=== PATIENT | female | born 1975 | race African-American/Black ===

== ENCOUNTER 2017-01-26 08:47 | Emergency (ER) | payer SELFPAY ==
[~2017-01-26] VITALS: Ht 160 cm; Wt 68.7 kg
[~2017-01-26 08:47] MED LIST: BACT800T5 PO; CEPH500C3 PO; DICL50 PO; HYDR-3533 PO
[2017-01-26 09:00] VITALS: BP 156/107; PULSE 88; RESP 16; TEMP 98.3; O2SAT 99
[2017-01-26] MEDS ORDERED: predniSONE 20 MG TAB PO ONE (09:45)
[2017-01-26] MEDS ORDERED: MEDR4PAK PO (09:46)
--- NOTE | 2017-01-26 09:46 | PD ---
HPI Chief Complaint: Skin Problem Time Seen by Provider: 09:35 Travel History International Travel<30 days: No Contact w/Intl Traveler<30days: No Traveled to known affect area: No History of Present Illness HPI This 41-year-old female is complaining of an itchy rash. She says it just started today. She spent the night at a friend's house wondering if she might have bedbugs. She has lesions on her right arm and left back and her right anterior chest. Symptoms just started this morning. PFSH Past Medical History Diabetes: No Diminished Hearing: No Immune Disorder: No Immunizations Current: No ?: Not LMP: 3 days ago : 11 Para: 1 Miscarriage: 10 : 0 Ectopic : Yes Past Surgical History Other Surgery: Yes (ectopic ) Social History Alcohol Use: Yes (2 BEERS DAILY) Tobacco Use: No Substance Use: No Allergies-Medications (Allergen,Severity, Reaction): Coded Allergies: Lortab (Verified Allergy, Unknown, GI ILL, 01/26/17) Reported Meds & Prescriptions Reported Meds & Active Scripts Active Keflex (Cephalexin Monohydrate) 500 Mg Cap 500 Mg PO QID Bactrim DS (Sulfamethoxazole-Trimethoprim DS) 1 Tab Tab 1 Tab PO BID 10 Days Lortab 5 mg/325 mg (Hydrocodone/Acetaminophen 5 mg/325 mg) 1 Tab 1 Tab PO Q6H PRN Voltaren (Diclofenac Sodium) 50 Mg Tabec 50 Mg PO TID Review of Systems General / Constitutional: No: Fever, Chills Eyes: No: Diploplia HENT: No: Headaches, Vertigo Cardiovascular: No: Chest Pain or Discomfort Respiratory: No: Cough Gastrointestinal: No: Vomiting, Diarrhea Genitourinary: No: Urgency, Frequency Skin: Positive Rash, Positive Itching Endocrine: No: Heat Intolerance Hematologic/Lymphatic: No: Easy Bruising Physical Exam Narrative GENERAL: Well-developed female SKIN: Focused skin assessment warm/dry. There are several erythematous macular lesions on the left posterior chest. There is one in the right anterior chest which measures about 2 cm in diameter. There are several vesicular lesions on the radial side of the right hand. HEAD: Atraumatic. Normocephalic. EYES: Pupils equal and round. No scleral icterus. No injection or drainage. ENT: No nasal bleeding or discharge. Mucous membranes pink and moist. NECK: Trachea midline. No JVD. CARDIOVASCULAR: Regular rate and rhythm. No murmur appreciated. RESPIRATORY: No accessory muscle use. Clear to auscultation. Breath sounds equal bilaterally. GASTROINTESTINAL: Abdomen soft, non-tender, nondistended. Hepatic and splenic margins not palpable. MUSCULOSKELETAL: No obvious deformities. No clubbing. No cyanosis. No edema. NEUROLOGICAL: Awake and alert. No obvious cranial nerve deficits. Motor grossly within normal limits. Normal speech. PSYCHIATRIC: Appropriate mood and affect; insight and judgment normal. Data Data Last Documented VS Vital Signs Date Time Temp Pulse Resp B/P Pulse Ox O2 Delivery O2 Flow Rate FiO2 01/26/17 09:00 98.3 88 16 156/107 99 Orders Prednisone (Deltasone) (01/26/17 09:45) [facility] Medical Decision Making Medical Screen Exam Complete: Yes Emergency Medical Condition: Yes Medical Record Reviewed: Yes Differential Diagnosis Differential includes allergic reaction, bug bites Narrative Course Patient be placed on Medrol Dosepak. Of note her blood pressure is elevated she is quite itchy now so reluctant to start her on meds but I have advised her of this and recheck in a few days Diagnosis Primary Impression: Allergic reaction Admitting Information Admitting Physician Requests: Admit Scripts Methylprednisolone Dosepak (Medrol Dosepak)4 Mg Dspk4 Mg PO DIRECTED #1 DSPK Ref 0 Per Pharmacist direction Prov:Cam Wills MD 01/26/17 Disposition: 01 DISCHARGE HOME Condition: Stable Cam Wills MD Jan 26, 2017 09:46
== END 2017-01-26 10:09 | disposition home or self-care (01) ==
LOC: PHEFT 08:47
DX: T78.40XA Allergy, unspecified, initial encounter (principal); R21 Rash and other nonspecific skin eruption
CPT/HCPCS: 99282; J7512

== ENCOUNTER 2017-11-01 20:23 | Emergency (ER) | payer OTHER ==
[~2017-11-01] VITALS: Ht 160 cm; Wt 79.6 kg
[~2017-11-01 20:23] MED LIST changes: -BACT800T5 PO; -CEPH500C3 PO; -DICL50 PO; -HYDR-3533 PO; +MEDR4PAK PO
[2017-11-01 20:29] VITALS: BP 145/100; PULSE 82; RESP 17; TEMP 97.9; O2SAT 99
[2017-11-01] MEDS ORDERED: DIPH25TA31 (20:36)
[2017-11-01] MEDS ORDERED: PENICILLIN V POTASSIUM 500 MG TAB PO ONE (22:30)
[2017-11-01] MEDS ORDERED: LIDOCAINE HCL 1% PF 10 ML VIAL INFIL ONE (22:30)
[2017-11-01] MEDS ORDERED: PERC5TAB12 PO (22:40)
[2017-11-01] MEDS ORDERED: PENI500T PO (22:40)
--- NOTE | 2017-11-01 22:40 | PD ---
HPI Chief Complaint: Oral / Dental Pain or Problem Time Seen by Provider: 22:17 Travel History International Travel<30 days: No Contact w/Intl Traveler<30days: No Traveled to known affect area: No History of Present Illness HPI 42-year-old female here for evaluation of right upper posterior dental pain and right cheek swelling. Symptoms have been going on for last 3 days and have progressively been worsening. She tried to make an appointment with a dentist, however she states she cannot get in with them until December. She denies fevers or chills. No trauma. Pain is moderate, constant, worse with movements. No respiratory difficulty. No difficulty swallowing. PFSH Past Medical History Diabetes: No Diminished Hearing: No Immune Disorder: No Immunizations Current: No ?: Not : 11 Para: 1 Miscarriage: 10 : 0 Ectopic : Yes Past Surgical History Other Surgery: Yes (ectopic ) Social History Alcohol Use: Yes (2-4 BEERS DAILY) Tobacco Use: No Substance Use: No Allergies-Medications (Allergen,Severity, Reaction): Coded Allergies: acetaminophen (Verified Allergy, Unknown, GI ILL, 11/01/17) hydrocodone (Verified Allergy, Unknown, GI ILL, 11/01/17) Reported Meds & Prescriptions Reported Meds & Active Scripts Active Reported Acetaminophen Pm Caplet (Acetaminophen/Diphenhydramine) 500 Mg-25 Mg Tablet Review of Systems Except as stated in HPI: all other systems reviewed are Neg Physical Exam Narrative GENERAL: Well-developed, well-nourished, comfortable, no apparent distress. SKIN: Focused skin assessment warm/dry. HEAD: Mild right cheek swelling with no induration or fluctuance. Normocephalic. EYES: Pupils equal and round. No scleral icterus. No injection or drainage. ENT: No nasal bleeding or discharge. Mucous membranes pink and moist. Right upper posterior molars with tenderness with right cheek swelling. There is no fluctuance or induration. No trismus. No drooling or stridor. Sublingual swelling. NECK: Trachea midline. No JVD. No submental or submandibular swelling or induration. CARDIOVASCULAR: Regular rate and rhythm. RESPIRATORY: No accessory muscle use. Clear to auscultation. Breath sounds equal bilaterally. MUSCULOSKELETAL: No obvious deformities. No clubbing. No cyanosis. No edema. NEUROLOGICAL: Awake and alert. No obvious cranial nerve deficits. Motor grossly within normal limits. Normal speech. PSYCHIATRIC: Appropriate mood and affect; insight and judgment normal. Data Data Last Documented VS Vital Signs Date Time Temp Pulse Resp B/P (MAP) Pulse Ox O2 Delivery O2 Flow Rate FiO2 11/01/17 20:29 97.9 82 17 145/100 (115) 99 Orders Orders Lidocaine Pf 1% Inj (Xylocaine-Mpf 1% In (11/01/17 22:30) Penicillin V Potassium (Veetids) (11/01/17 22:30) MDM Medical Decision Making Medical Screen Exam Complete: Yes Emergency Medical Condition: Yes Differential Diagnosis Dental infection, dental abscess Narrative Course Right greater palatine nerve block and right inferior alveolar nerve blocks were performed and the patient experienced significant relief of pain. Physical exam shows some right cheek swelling with right upper posterior molar tenderness. There are no obvious dental caries. There is no induration or fluctuance. No trismus. No drooling or stridor. No physical exam findings to suggest deep space neck infection. At this point plan is to start the patient on oral antibiotics and have her follow-up with a dentist this week. She was advised on when to return to the emergency department. She verbalizes understanding and agreement with plan. Procedures Procedure Narrative Right greater palatine nerve block: 1 cc of 1% lidocaine was injected in the area of the right greater palatine nerve with significant improvement in pain. Tolerated well. No complications. Right inferior alveolar nerve block: 1 cc of 1% lidocaine was injected in the area of the right inferior alveolar nerve with significant improvement in pain. Tolerated well. No complications. Diagnosis Primary Impression: Dental infection Referrals: Dentist 3 days Additional Instructions: Follow-up with a dentist as soon as possible. Take antibiotic as prescribed. Return to the emergency department for worsening symptoms or any other concerns. Scripts Oxycodone-Acetaminophen (Percocet) 5-325 mg Tab 1 TAB PO Q6H Y for PAIN, #10 TAB 0 Refills Prov: Paul Whitlock MD 11/01/17 Penicillin V Potassium (Penicillin V Potassium) 500 Mg Tab 500 MG PO Q6H for Infection for 10 Days, #40 TAB 0 Refills Prov: Paul Whitlock MD 11/01/17 Disposition: 01 DISCHARGE HOME Condition: Stable Paul Whitlock MD Nov 01, 2017 22:40
== END 2017-11-01 23:01 | disposition home or self-care (01) ==
LOC: PHEFT 20:23
DX: K04.7 Periapical abscess without sinus (principal); Z88.4 Allergy status to anesthetic agent; Z88.5 Allergy status to narcotic agent
CPT/HCPCS: 64400

== ENCOUNTER 2017-11-02 08:18 | Emergency (ER) | payer OTHER ==
[~2017-11-02] VITALS: Ht 160 cm; Wt 79.3 kg
[~2017-11-02 08:18] MED LIST changes: +DIPH25TA31; -MEDR4PAK PO; +PENI500T PO; +PERC5TAB12 PO
[2017-11-02 08:20] VITALS: BP 166/110; PULSE 82; RESP 17; TEMP 98.9; O2SAT 99
--- NOTE | 2017-11-02 08:32 | PD ---
HPI Chief Complaint: Oral / Dental Pain or Problem Time Seen by Provider: 08:25 Travel History International Travel<30 days: No Contact w/Intl Traveler<30days: No Traveled to known affect area: No History of Present Illness HPI patient was seen yesterday in ER for same complaint, was given nerve block in ED and given abx as well as percocet. now patient returns for same complaint. denies fever/n/v/cp/abdpain/back pain/. states no alleviating/aggravating factors. PFSH Past Medical History Diabetes: No Diminished Hearing: No Immune Disorder: No Immunizations Current: No ?: Not LMP: 10/06/2017 : 11 Para: 1 Miscarriage: 10 : 0 Ectopic : Yes Past Surgical History Other Surgery: Yes (ectopic ) Social History Alcohol Use: Yes (2-4 BEERS DAILY) Tobacco Use: No Substance Use: No Allergies-Medications (Allergen,Severity, Reaction): Coded Allergies: acetaminophen (Verified Allergy, Unknown, GI ILL, 11/02/17) hydrocodone (Verified Allergy, Unknown, GI ILL, 11/02/17) Reported Meds & Prescriptions Reported Meds & Active Scripts Active Percocet (Oxycodone-Acetaminophen) 5-325 mg Tab 1 Tab PO Q6H PRN Penicillin V Potassium 500 Mg Tab 500 Mg PO Q6H 10 Days Reported Acetaminophen Pm Caplet (Acetaminophen/Diphenhydramine) 500 Mg-25 Mg Tablet Review of Systems Except as stated in HPI: all other systems reviewed are Neg General / Constitutional: No: Fever Eyes: No: Visual changes HENT: Positive: Dental Difficulties Cardiovascular: No: Chest Pain or Discomfort Respiratory: No: Shortness of Breath Gastrointestinal: No: Abdominal Pain Genitourinary: No: Dysuria Musculoskeletal: No: Pain Skin: No Rash Neurologic: No: Weakness Psychiatric: No: Depression Endocrine: No: Polydipsia Hematologic/Lymphatic: No: Easy Bruising Physical Exam Narrative GENERAL: SKIN: Warm and dry. HEAD: Atraumatic. Normocephalic. EYES: Pupils equal and round. No scleral icterus. No injection or drainage. ENT: No nasal bleeding or discharge. Mucous membranes pink and moist. right maxillary molar dental caries with localized gingivitis but no local abscess, patient has noted early swelling/fullness to right cheek, NECK: Trachea midline. No JVD. CARDIOVASCULAR: Regular rate and rhythm. RESPIRATORY: No accessory muscle use. Clear to auscultation. Breath sounds equal bilaterally. GASTROINTESTINAL: Abdomen soft, non-tender, nondistended. Hepatic and splenic margins not palpable. MUSCULOSKELETAL: Extremities without clubbing, cyanosis, or edema. No obvious deformities. NEUROLOGICAL: Awake and alert. No obvious cranial nerve deficits. Motor grossly within normal limits. Five out of 5 muscle strength in the arms and legs. Normal speech. PSYCHIATRIC: Appropriate mood and affect; insight and judgment normal. Data Data Last Documented VS Vital Signs Date Time Temp Pulse Resp B/P (MAP) Pulse Ox O2 Delivery O2 Flow Rate FiO2 11/02/17 08:20 98.9 82 17 166/110 (128) 99 Orders Orders Clindamycin Inj (Cleocin Inj) (11/02/17 08:45) [facility] Medical Decision Making Medical Screen Exam Complete: Yes Emergency Medical Condition: No Medical Record Reviewed: Yes Differential Diagnosis dental infection Narrative Course patient declined any additional nerve blocks today, stated that she did not fill her antibiotics yesterday. Patient was given emergency dental referral information. patient already has prescription for amoxil and percocet so no additional rx given...patient given clinda im. Diagnosis Primary Impression: dental infection with early facial extension (right cheek) Patient Instructions: General Instructions, Toothache (ED) Disposition: 01 DISCHARGE HOME Condition: Stable Mirza Duncan MD Nov 02, 2017 08:32
[2017-11-02] MEDS ORDERED: CLINDAMYCIN PHOS 300 MG/2 ML VIAL IM ONE (08:45)
[2017-11-02] MEDS ORDERED: CLINDAMYCIN PHOS 600 MG/4 ML VIAL IM ONE (08:45)
== END 2017-11-02 09:31 | disposition home or self-care (01) ==
LOC: PHED 08:18
DX: K04.7 Periapical abscess without sinus (principal)
CPT/HCPCS: 96372; 99281